=== PATIENT | male | born 1965 | race Caucasian/White ===

== ENCOUNTER 2023-08-04 08:33 | Outpatient (CLI) | payer BC, SELFPAY ==
--- NOTE | ~2023-08-04 | XR_ITS ---
XR shoulder RT min 2V 08/04/2023 09:22 Indication: Right shoulder pain Procedure: 4 views right shoulder Comparison: No prior studies for comparison. Findings: There is severe right glenohumeral joint osteoarthritis. No fracture, subluxation or disloc ation. No significant soft tissue abnormality. No foreign bodies. Impression: 1: Severe right glenohumeral joint osteoarthritis. Reviewed, dictated and finalized at location B. Impression: 1: Severe right glenohumeral joint osteoarthritis.
== END 2023-08-04 08:34 ==
PROVIDERS: PCP Physician Assistant; Visit Provider Physician Assistant
DX: M19.011 Primary osteoarthritis, right shoulder (principal)
CPT/HCPCS: 73030